=== PATIENT | male | born 1950 | race Caucasian/White ===

== ENCOUNTER 2018-03-26 11:58 | Observation (INO) | payer OTHER, BC ==
[~2018-03-26] VITALS: Ht 172.7 cm; Wt 85.6 kg
[~2018-03-26 11:58] MED LIST: ADVIL200 MG PO; Flagyl PO; Levaquin PO; NUCYNTA100 MG PO; NUCYNTA50 MG; PROTONIX40 MG PO; VALIUM10 MG PO
[2018-03-26 13:06] LABS: APPEARANCE CLEAR ((CLEAR)); BILIRUBIN NEGATIVE; BLOOD NEGATIVE; COLOR YELLOW ((YELLOW)); GLUCOSE (STRIP) NEGATIVE; KETONES NEGATIVE; LEUKOCYTES MODERATE; NITRITE NEGATIVE; PROTEIN (STRIP) NEGATIVE; SPECIFIC GRAVITY 1.017 (1.000-1.030); UROBILINOGEN 0.2 MG/DL (0.2-1.0)
[2018-03-26 13:09] LABS: BACTERIA RARE /HPF; EPITHELIAL CELLS NONE SEEN /HPF; MUCUS 1+ /LPF; UCUL ADDED? YES; WHITE BLOOD CELLS 20-30 /HPF (0-5)
[2018-03-26 13:11] LABS: HEMATOCRIT 42.1 % (38.0-50.0); HEMOGLOBIN 14.7 G/DL (12.5-16.6); MCH 30.6 PG (29.0-34.0); MCHC 34.9 G/DL (30.0-36.0); MCV 87.7 FL (86-99); PLATELET COUNT 297 K/uL (156-360); RBC DIS.WIDTH-SD 41.4 % (39-53); WHITE BLOOD COUNT 9.1 K/uL (4.1-10.2)
[2018-03-26 13:17] LABS: INTER. NORMALIZED RATIO 1.1
[2018-03-26 13:19] LABS: PTT 33.2 SEC (25-37)
[2018-03-26 13:23] LABS: ALBUMIN 4.4 g/dL (3.2-4.8); CHLORIDE 107 mEq/L (99-109); POTASSIUM 4.5 mEq/L (3.7-5.4); SODIUM 140 mEq/L (136-147)
[2018-03-26 13:25] LABS: GLUCOSE 114 mg/dL (70-99)
[2018-03-26 13:26] LABS: TOTAL PROTEIN 7.4 g/dL (6.4-8.3)
[2018-03-26 13:27] LABS: TOTAL BILIRUBIN 0.6 mg/dL (0.0-1.0)
[2018-03-26 13:29] LABS: ALKALINE PHOSPHATASE 84 IU/L (3-129); CREATININE 1.2 mg/dL (0.6-1.3); GFR ESTIMATE (CALCULATED) > 59 mL/min/ (58.99-99999)
[2018-03-26 13:30] LABS: UREA NITROGEN (BUN) 10 mg/dL (9-23)
[2018-03-26 13:31] LABS: AST (GOT) 17 IU/L (2-34); DIRECT BILIRUBIN 0.2 mg/dL (0.0-0.3)
[2018-03-26 13:32] LABS: ALT (GPT) 17 IU/L (3-49)
[2018-03-26 13:33] LABS: LIPASE 9 U/L (1.0-51.0)
[2018-03-26 13:33] LABS: TROP-I INTERPRETATION NEGATIVE; TROPONIN-I < 0.01 ng/mL (0.0-0.30)
[2018-03-26] MEDS ORDERED: AUGMENTIN875 MG PO (16:21)
[2018-03-26] MEDS ORDERED: BETAMETHASONE D50 G1 TP (19:12)
[2018-03-26 21:00] VITALS: BP 171/77
[2018-03-26 23:34] VITALS: BP 132/85
[2018-03-27 04:30] VITALS: BP 171/85
[2018-03-27 05:00] VITALS: BP 135/84
[2018-03-27 07:36] VITALS: BP 142/83
[2018-03-27] MEDS ORDERED: TORADOL10 MG PO (09:24)
[2018-03-27 11:13] VITALS: BP 128/70
== END 2018-03-27 18:10 | disposition home or self-care (01) ==
LOC: EME 11:58 → EDOF 19:43 → 3EAST 19:43 → ENRESERV 19:46 → 3EAST 20:51
PROVIDERS: Emergency Medicine
DX: K80.66 Calculus of gallbladder and bile duct with acute and chronic cholecystitis without obstruction (principal); K42.9 Umbilical hernia without obstruction or gangrene; K66.0 Peritoneal adhesions (postprocedural) (postinfection); I78.0 Hereditary hemorrhagic telangiectasia; K59.00 Constipation, unspecified; R19.7 Diarrhea, unspecified; G89.29 Other chronic pain; Z88.5 Allergy status to narcotic agent; F10.21 Alcohol dependence, in remission; Z90.49 Acquired absence of other specified parts of digestive tract; K40.20 Bilateral inguinal hernia, without obstruction or gangrene, not specified as recurrent
CPT/HCPCS: 74177; 76705; 80053; 81003; 82248; 83605; 83690; 83880; 84484; 85027; 85610; 85730; 87086; 88304; 93005; 99281; 99284; G0378; J0131; J0330; J1100; J1170; J1885; J2250; J2270; J2405; J2710; J3010; J7120; J7643; S0028; S0074